=== PATIENT | male | born 1985 | race Caucasian/White ===

== ENCOUNTER 2016-07-01 09:54 | Emergency (ER) | payer OTHER ==
[2016-07-01] MEDS ORDERED: NS 0.9% 1000 ML* 1,000 ML IV ONE (10:12)
[2016-07-01 11:11] LABS: Hematocrit 45 % (42-52); Hemoglobin 15.1 g/dl (14.0-18.0); Mean Corpuscular HGB Conc 34 g/dl (31-36); Mean Corpuscular Hemoglobin 27 pg (27-31); Mean Corpuscular Volume 79 fL (80-94); Mean Platelet Volume 8 um3 (7.4-10.4); Red Blood Count 5.67 10^6/ul (4.0-5.4); Red Cell Distribution Width 14 % (10.5-15)
[2016-07-01] MEDS ORDERED: Ondansetron INJ* 2 MG/ML VIAL IV ONE (11:29)
[2016-07-01] MEDS ORDERED: Morphine INJ* 4 MG/ML 1 ML CARPUJECT SUBCUT ONE (11:29)
[2016-07-01 11:39] LABS: Albumin 4.4 g/dL (3.2-5.2); BUN/Creatinine Ratio 14.9 (8-20); C Reactive Protein 5.74 mg/L (< 5.00); Calcium 9.5 mg/dL (8.6-10.3); EGFR African American 176.8 (>60); EGFR Non-African American 137.5 (>60); Globulin 3.5 g/dL (2-4); Potassium 3.9 mmol/L (3.5-5.0); Total Bilirubin 2.1 mg/dL (0.2-1.0); Total Protein 7.9 g/dL (6.4-8.9)
--- NOTE | 2016-07-01 12:08 | RAD ---
INDICATION: Left upper quadrant pain . Appendectomy 3 weeks ago COMPARISON: None TECHNIQUE: Axial source images were acquired from the level hemidiaphragms to the symphysis pubis pubis. The examination was performed following administration of oral contrast only as requested by the ED. Lung bases: The lung bases are clear. Liver: The liver is normal in size. Noncontrast imaging shows no evidence of a hepatic mass or ductal dilatation. Gallbladder: There are no calcified gallstones. There is no evidence of wall thickening or pericholecystic fluid.. Spleen: There is mild splenomegaly. The spleen measures 13 cm in diagonal dimension. There are no masses on noncontrast evaluation. Pancreas: Noncontrast imaging shows no pancreatic mass or ductal dilitation. Adrenal glands: No masses are identified. Kidneys/Bladder: There is no evidence of nephrolithiasis or CT evidence of hydronephrosis. Noncontrast imaging shows no evidence of a renal mass. The bladder is unremarkable.. Adenopathy: There is no evidence of intraperitoneal or retroperitoneal adenopathy. Evaluation is limited without oral contrast. Fluid collections: There are no free or localized fluid collections. Vessels: The aorta and iliac vessels are normal in caliber. There are no significant atherosclerotic changes. The IVC appears normal Pelvic organs: The prostate and seminal vesicles appear normal GI tract: Evaluation of the bowel is limited without oral contrast. The stomach, small bowel, and lower GI tract appear grossly normal. There are no obstructive findings. The appendix is visualized and appears normal. Soft tissues: No soft tissue abnormalities of the extraperitoneal abdomen or pelvis are identified. Osseous structures: There are no acute osseous findings. IMPRESSION: NO ACUTE CT FINDINGS. NO MASS OR INFLAMMATORY CHANGE. MILD SPLENOMEGALY.
[2016-07-01 12:10] LABS: Urine Bilirubin Negative (Negative); Urine Glucose Negative (Negative); Urine Nitrite Negative (Negative)
[2016-07-01 14:06] VITALS: BP 139/78
--- NOTE | 2016-07-01 14:10 | ED ---
Jonathan Castro Matthew, scribed for Jamal Morrison MD on 07/01/16 at 1015 . Abdominal Pain/Male - HPI Summary HPI Summary: A 30 y/o male presents to the ED with constant left sided abdominal pain since 2 days ago. The pain is rated 8/10 in severity and does not radiate. He also had blood w/ stool yesterday one time with another more severe episode this morning. Associated symptoms include shakiness, diaphoresis, decreased appetite , nausea, and dry heaving/vomiting. The patient's appendix ruptured ~3 weeks ago and he underwent an appendectomy at [facility] in [facility]. Fhx of colon CA and CVA. PMHx of GERD - History of Current Complaint Chief Complaint: EDAbdPain Stated Complaint: LOWER LT ABD PAIN / BLOOD IN STOOL Time Seen by Provider: 07/01/16 10:12 Hx Obtained From: Patient Onset/Duration: Lasting Days, Still Present Timing: Constant Severity Initially: Moderate Severity Currently: Moderate Pain Intensity: 7 Pain Scale Used: 0-10 Numeric Location: Diffuse - left sided abdominal pain Radiates: No Aggravating Factor(s): Other: - Touch Alleviating Factor(s): Nothing Associated Signs And Symptoms: Positive: Diaphoresis, Blood in Stool, Decreased Appetite, Nausea, Vomiting, Other - Shakiness - Allergies/Home Medications Allergies/Adverse Reactions: Allergies Allergy/AdvReac Type Severity Reaction Status Date / Time Acetaminophen Allergy Rash Verified 07/01/16 10:20 Bee Pollen Allergy Anaphylatic Verified 07/01/16 10:20 Shock Ketorolac Tromethamine Allergy Vomiting Verified 07/01/16 10:20 [From Toradol] Shellfish Allergy Allergy Anaphylatic Verified 07/01/16 10:20 Shock Tramadol [From Ultram] Allergy Vomiting Verified 07/01/16 10:20 Home Medications: Home Medications Ibuprofen [Advil] 600 mg PO Q6H PRN 07/01/16 [History Confirmed 07/01/16] PMH/Surg Hx/FS Hx/Imm Hx Endocrine/Hematology History: Denies: Hx Diabetes GI History: Reports: Hx Gastroesophageal Reflux Disease Infectious Disease History: No Infectious Disease History: Denies: Traveled Outside the [place] in Last 30 Days - Family History Family History: FHx of CA and CVA - Social History Alcohol Use: None Hx Substance Use: No Hx Tobacco Use: Yes Review of Systems Constitutional: Other - decreased appetite; shakiness Positive: Skin Diaphoresis Eyes: Negative ENT: Negative Cardiovascular: Negative Respiratory: Negative Gastrointestinal: Other - Blood w/ stool Positive: Abdominal Pain - left sided, Vomiting - dry-heaving, Nausea Genitourinary: Negative Musculoskeletal: Negative Skin: Negative Neurological: Negative Positive: Anxious All Other Systems Reviewed And Are Negative: Yes Physical Exam - Summary Physical Exam Summary: VITAL SIGNS: Reviewed. GENERAL: Patient is a well developed and nourished male who is lying comfortable in the stretcher. Patient is not in any acute respiratory distress. HEAD AND FACE: Normocephalic and atraumatic. EYES: PERRLA, EOMI x 2, No injected conjunctiva. EARS: Hearing grossly intact. Ear canals and tympanic membranes are WNL. MOUTH: Oropharynx within normal limits. NECK: Supple, trachea is midline, no adenopathy, no JVD. CHEST: Symmetric, no tenderness at palpation LUNGS: Clear to auscultation bilaterally. No wheezing or crackles. CVS: RRR,, S1 and S2 present, no murmurs or gallops appreciated. ABDOMEN: Soft, Positve LLQ tenderness. No signs of distention. Positive bowel sounds. No rebound positive guarding, and no masses palpated. No abdominal bruit or pulsations. EXTREMITIES: FROM in all major joints, no edema, no cyanosis or clubbing. NEURO: Alert and oriented x 3. No acute neurological deficits. Speech is normal. SKIN: Dry and warm Triage Information Reviewed: Yes Vital Signs On Initial Exam: Initial Vitals Temp Pulse Resp BP Pulse Ox 97.7 F 102 98 152/86 98 07/01/16 09:58 07/01/16 09:58 07/01/16 09:58 07/01/16 09:58 07/01/16 09:58 Vital Signs Reviewed: Yes Diagnostics - Vital Signs Vital Signs Temp Pulse Resp BP Pulse Ox 07/01/16 09:58 97.7 F 102 98 152/86 98 - Laboratory Result Diagrams: 07/01/16 10:55 07/01/16 10:55 Lab Statement: Any lab studies that have been ordered have been reviewed, and results considered in the medical decision making process. - CT A/P CT CT Interpretation: No Acute Changes - IMPRESSION: NO ACUTE CT FINDINGS. NO MASS OR INFLAMMATORY CHANGE. MILD SPLENOMEGALY. CT Interpretation Completed By: Radiologist Abdominal Pain Fem Course/Dx - Course Assessment/Plan: A 30 y/o male presents to the ED with constant left sided abdominal pain since 2 days ago. The pain is rated 8/10 in severity and does not radiate. He also had blood w/ stool yesterday one time with another more severe episode this morning. Associated symptoms include shakiness, diaphoresis , decreased appetite, nausea, and dry heaving/vomiting. The patient's appendix ruptured ~3 weeks ago and he underwent an appendectomy at [facility] in [facility]. Fhx of colon CA and CVA. PMHx of GERD. Blood work WNL except WBC of 5.6, total bilirubin 2.1, C-reactive protein 5.7 consistent with recent surgery. Urinalysis is negative except for 2+ ketones. A/P CT shows no acute finding, no masses, and no inflammatory changes. It does show mild splenomegaly. Occult blood test was positive; however, H&H is stable. Therefore I recommend the patient be discharge back to his facility and follow-up with a GI physician [facility] and PCP. He will continue taking bland diet. He is to return to the ED if pain increases or he develops more rectal bleeding, fevers, or chills. Patient understands and agrees. He will take Tylenol for the pain as needed. - Diagnoses Differential Diagnosis/HQI/PQRI: Bowel Obstruction, Constipation, Diverticulitis , Renal Colic Provider Diagnoses: Abdominal pain, Rectal bleed Discharge - Discharge Plan Condition: Stable Disposition: HOME Patient Education Materials: Abdominal Pain (ED), Rectal Bleeding (ED) Referrals: No Primary Care Phys,NOPCP [Primary Care Provider] - Additional Instructions: Please follow-up with GI physician as soon as possible at your facility and a primary care physician. Also, please take Tylenol as directed on the medication for pain. The documentation as recorded by the Jonathan villa Matthew accurately reflects the service I personally performed and the decisions made by me, Jamal Morrison MD.
== END 2016-07-01 14:01 | disposition home or self-care (01) ==
LOC: ED 09:54
DX: K62.5 Hemorrhage of anus and rectum (principal); R10.32 Left lower quadrant pain
CPT/HCPCS: 36415; 74176; 80053; 81003; 82150; 82272; 83605; 83690; 83880; 85025; 86140; 96374; 96375; 99284; J2270; J2405